=== PATIENT | female | born 1970 | race Two or more races ===

== ENCOUNTER 2020-06-18 08:05 | Inpatient (IN) | payer MEDICAID, OTHER ==
[~2020-06-18] VITALS: Ht 170.2 cm; Wt 86.5 kg
[2020-06-18 08:44] LABS: Hematocrit 22.7 % (36.0-46.0); Mean Corpuscular Hgb Conc. 30.7 g/dL (32.0-36.0); Mean Corpuscular Volume 58.5 fL (80.0-100.0); Platelet Count (auto) 309 10^3/uL (140-450); Red Blood Cells 3.89 10^6/uL (4.0-5.20)
[2020-06-18 08:59] LABS: White Blood Cell 1.6 10^3/uL (4.4-10.8)
[2020-06-18] MEDS ORDERED: SODIUM CHLORIDE 0.9% 1,000 ML IV ONE (09:00)
[2020-06-18] MEDS ORDERED: cefTRIAXone 1GM/50ML D5W 50 ML IV ONE (09:00)
[2020-06-18 09:01] LABS: Alanine Aminotransferase 41 U/L (13-56); Albumin 2.5 g/dL (3.4-5.0); Anion Gap 7 (5-15); Aspartate Aminotransferase 31 U/L (15-37); BUN/Creatinine Ratio 14.3; Basophils % (manual) 0 (0.0-2.0); Blast Cells 0; Blood Urea Nitrogen 8 mg/dL (7-18); Calcium 9.2 mg/dL (8.5-10.1); Carbon Dioxide 27 mmol/L (21-32); Chloride 103 mmol/L (98-107); GFR African American 149 mL/min; GFR Non-African American 123 mL/min; Glucose 110 mg/dL (74-106); Metamyelocytes % 0; Myelocytes % 0; Potassium 3.7 mmol/L (3.5-5.1); Promyelocytes % 0; Reactive Lymphocytes 0; Sodium 137 mmol/L (136-145)
[2020-06-18 09:06] LABS: Alkaline Phosphatase 106 U/L (45-117); Bilirubin, Total 0.2 mg/dL (0.2-1.0); Total Protein 7.8 g/dL (6.4-8.2)
[2020-06-18] MEDS ORDERED: IOHEXOL 300 MG/ML 100ML BOTTLE IJ ONE (10:07)
[2020-06-18 10:49] LABS: INR 1.13 (0.9-1.15); Partial Thromboplastin Time 26.4 sec (23.0-31.2)
[2020-06-18 11:05] LABS: Band Neutrophils % (manual) 6; Lymphocytes % (manual) 46 (10.0-50.0)
[2020-06-18 11:06] LABS: Eosinophils % (manual) 2 (0-7); Monocytes % (manual) 13 (0-12)
[2020-06-18] MEDS ORDERED: NITROGLYCERIN 0.4 MG SL TAB SL PRN (11:30)
[2020-06-18] MEDS ORDERED: traMADol HCL 50 MG TAB PO PRN (11:30)
[2020-06-18] MEDS ORDERED: FILGRASTIM (TBO) 300 MCG/0.5 ML SYRG SC ONE (11:30)
[2020-06-18] MEDS ORDERED: MORPHINE SULF INJ 2 MG/ML SYRINGE 1ML IV PRN (11:30)
[2020-06-18] MEDS ORDERED: PROMETHAZINE HCL 25 MG/ML 1ML IV PRN (11:30)
[2020-06-18] MEDS ORDERED: TEMAZEPAM 15 MG CAP PO PRN (11:30)
[2020-06-18] MEDS ORDERED: AMOX500C2 PO (12:16)
--- NOTE | 2020-06-18 12:35 | NUR ---
PATIENT ARRIVED TO THE FLOOR. PATIENT SHOWS NO SIGNS OF DISTRESS AT THIS TIME. DISCUSSED THE PLAN OF CARE WITH THE PATIENT. BED IN LOWEST POSITION, SIDE RAILS UP X2, AND CALL LIGHT IS WITHIN REACH.
[2020-06-18 14:06] VITALS: BP 120/69
[2020-06-18] MEDS ORDERED: FAMO-12 PO (14:12)
[2020-06-18] MEDS ORDERED: PANT1INJ3 IV (14:12)
[2020-06-18] MEDS ORDERED: ONDA-155 PO (14:12)
[2020-06-18] MEDS ORDERED: DEXA4TAB PO (14:12)
[2020-06-18 14:22] VITALS: BP 117/69
[2020-06-18 14:34] VITALS: BP 114/67
[2020-06-18] MEDS: ACETAMINOPHEN 500 MG TAB PO PRN (16:48)
[2020-06-18 17:00] VITALS: BP 116/74
--- NOTE | 2020-06-18 17:18 | NUR ---
PATIENT COMPLAINING OF A SORE THROAT. CALLED DR GRAVES AND RECEIVED NEW ORDERS.
[2020-06-18] MEDS: THROAT LOZENGES(CEPASTAT) MT PRN (18:19)
--- NOTE | 2020-06-18 19:18 | NUR ---
Opening note Assumed care of patient, patient is alert and orientated x4. Patient is Haitian speaking. POC reviewed. All questions answered at this time. Bed is locked in lowest position, side rails up x2. Patient ambulates Call light within reach, Will continue to monitor q1hr and PRN.
[2020-06-18] MEDS: MORPHINE SULF INJ 2 MG/ML SYRINGE 1ML IV PRN (20:14)
--- NOTE | 2020-06-18 20:15 | NUR ---
Pain Patient is having pain in her lower back 8/. Will reassess pain and continue to monitor.
--- NOTE | 2020-06-18 20:20 | NUR ---
Dr Bello at bedside. Dr Bello at bedside. No new orders received. Will continue to monitor patient.
[2020-06-18 21:05] LABS: Urine Bacteria NONE SEEN /hpf (None Seen); Urine Blood 3+ /uL (Negative); Urine Mucus MODERATE (None Seen); Urine Specific Gravity 1.036 (1.001-1.035); Urine WBC 16 /hpf (0 - 5)
[2020-06-18 21:23] VITALS: BP 123/53
[2020-06-18] MEDS: FAMOTIDINE 20 MG TAB PO SCH (21:54)
[2020-06-19] VITALS (9 sets, daily range): BP systolic 100–128; BP diastolic 59–78
--- NOTE | 2020-06-19 02:05 | NUR ---
Pain Patient is having pain 8/10 on her back, also in her throat. Medicated per md orders. Will reassess and continue to monitor patient.
[2020-06-19] MEDS: MORPHINE SULF INJ 2 MG/ML SYRINGE 1ML IV PRN (02:06)
[2020-06-19 05:42] LABS: Mean Corpuscular Volume 61.4 fL (80.0-100.0)
[2020-06-19 05:44] LABS: Mean Corpuscular Hemoglobin 19.4 pg (28.0-32.0); Mean Corpuscular Hgb Conc. 31.7 g/dL (32.0-36.0); Platelet Count (auto) 299 10^3/uL (140-450); Red Blood Cells 3.58 10^6/uL (4.0-5.20); White Blood Cell 7.7 10^3/uL (4.4-10.8)
[2020-06-19 06:07] LABS: Red Cell Distribution Width 22.5 % (11.8-14.3)
[2020-06-19 06:14] LABS: Basophils % (manual) 0 (0.0-2.0); Blast Cells 0; Eosinophils % (manual) 0 (0-7); Metamyelocytes % 0; Promyelocytes % 0; Reactive Lymphocytes 0
--- NOTE | 2020-06-19 06:20 | NUR ---
Critical lab value Critical lab value hemoglobin 7.0. Will call hospitalist.
--- NOTE | 2020-06-19 06:25 | NUR ---
Paged Hospitalist Paged Hospitalist regarding patients critical hemoglobin. Awaiting call back. Will continue to monitor.
[2020-06-19 06:42] LABS: Band Neutrophils % (manual) 4; Lymphocytes % (manual) 12 (10.0-50.0); Monocytes % (manual) 7 (0-12); Myelocytes % 2
--- NOTE | 2020-06-19 07:00 | NUR ---
OPENING SHIFT NOTE RECEIVED REPORT ON THE PATIENT. AWAKE SITTING UP IN BED HAVING BREAKFAST. PATIENT SHOWS NO SIGNS OF DISTRESS AT THIS TIME. DISCUSSED THE PLAN OF CARE WITH THE PATIENT. BED IN LOWEST POSITION, SIDE RAILS UP X2, AND THE CALL LIGHT IS WITHIN REACH.
--- NOTE | 2020-06-19 07:10 | NUR ---
Critical lab value endorsed to day shift RN. Hospitalist has not paged back.
--- NOTE | 2020-06-19 07:13 | NUR ---
Closing note endorsed care to day shift RN no sob or distress noted.
--- NOTE | 2020-06-19 10:28 | NUR ---
DR WOODS AT BEDSIDE. NEW ORDERS RECEIVED.
[2020-06-19] MEDS: FAMOTIDINE 20 MG TAB PO SCH ×2 (10:45→22:30)
[2020-06-19] MEDS: cefTRIAXone 1GM/50ML D5W 50 ML IV SCH (10:45)
[2020-06-19] MEDS: FILGRASTIM (TBO) 300 MCG/0.5 ML SYRG SC SCH (10:53)
[2020-06-19] MEDS ORDERED: diphenhdrAMINE HCL 25 MG CAP PO PRN (12:00)
[2020-06-19] MEDS: SODIUM CHLORIDE 0.9% 1,000 ML IV SCH (15:32)
[2020-06-19] MEDS: ACETAMINOPHEN 500 MG TAB PO PRN (16:38)
--- NOTE | 2020-06-19 17:27 | NUR ---
IV removal IV DC'd with clean sterile technique, catheter fully intact. Pressure dressing applied to site. Patient tolerated well. NOTE: []
--- NOTE | 2020-06-19 17:28 | NUR ---
IV insertion IV access obtained, via clean sterile technique by inserting 20 gauge catheter at the right forearm after 1 attempt(s). IV secured properly. No trauma to site. Patient tolerated well. NOTE: []
--- NOTE | 2020-06-19 19:18 | NUR ---
Opening note Assumed care of patient, Patient is resting in bed. bed is locked in lowest position, side rails up x2. No sob or distress noted. POC reviewed patient verbalized understanding. Patient is infusing blood products. Blood transfusion is almost done. Will reassess the patient and stop the transfusion when it ends. Call light within reach, Will continue to monitor q1hr and PRN.
--- NOTE | 2020-06-19 19:30 | NUR ---
Blood transfusion ended. Blood transfusion has been complete. Vital signs are temp: 98.7, oxygen saturation 99%, Patient has no pain, HR 88 Blood pressure 113/65. Blood products has been discarded and NS at 50 ml has been resumed. Patient tolerated well. Will continue to monitor q1hr and PRN.
--- NOTE | 2020-06-19 21:30 | NUR ---
H&H ordered Per protocol H&H ordered. Will continue to monitor patient.
[2020-06-19 22:51] LABS: Hematocrit 27.4 % (36.0-46.0); Hemoglobin 8.6 g/dL (12.2-16.2)
[2020-06-20] MEDS: THROAT LOZENGES(CEPASTAT) MT PRN ×3 (03:07→21:07)
[2020-06-20 05:29] VITALS: BP 113/69
[2020-06-20 07:14] LABS: Red Blood Cells 3.94 10^6/uL (4.0-5.20)
[2020-06-20 07:16] LABS: Hematocrit 25.5 % (36.0-46.0); Hemoglobin 7.9 g/dL (12.2-16.2); Mean Corpuscular Hgb Conc. 30.9 g/dL (32.0-36.0); Mean Corpuscular Volume 64.6 fL (80.0-100.0); Platelet Count (auto) 413 10^3/uL (140-450); White Blood Cell 24.9 10^3/uL (4.4-10.8)
[2020-06-20 07:17] LABS: Red Cell Distribution Width 27.5 % (11.8-14.3)
[2020-06-20 07:18] LABS: Basophils % (manual) 0 (0.0-2.0); Blast Cells 0; Eosinophils % (manual) 0 (0-7); Promyelocytes % 0; Reactive Lymphocytes 0
--- NOTE | 2020-06-20 07:33 | NUR ---
Closing note Endorsed care to day shift RN no sob or distress noted.
--- NOTE | 2020-06-20 07:50 | NUR ---
Opening note Assumed care of patient, patient is alert and orientated x4, no sob or distress noted. POC reviewed, all questions answered at this time. Bed is locked in lowest position, side rails up x2. Call light within reach. Will continue to monitor q1hr and PRN.
[2020-06-20 07:55] LABS: Band Neutrophils % (manual) 8; Lymphocytes % (manual) 6 (10.0-50.0); Metamyelocytes % 3; Monocytes % (manual) 4 (0-12); Myelocytes % 1
[2020-06-20 09:00] VITALS: BP 112/66
[2020-06-20] MEDS: cefTRIAXone 1GM/50ML D5W 50 ML IV SCH (09:07)
[2020-06-20] MEDS: SODIUM CHLORIDE 0.9% 1,000 ML IV SCH ×2 (09:08→19:00)
[2020-06-20] MEDS: FAMOTIDINE 20 MG TAB PO SCH ×2 (09:08→21:56)
[2020-06-20] MEDS: FILGRASTIM (TBO) 300 MCG/0.5 ML SYRG SC SCH (09:21)
--- NOTE | 2020-06-20 11:10 | NUR ---
Nutrition Assessment Est energy needs 5499-2866 kcal (18-20 kcal/kg BW 87.3kg) Est protein needs 61-74g (1-1.2g/kg IBW 61kg) Will reassess prn. Addendum: 06/20/20 at [address] Amended: Links added.
[2020-06-20 13:00] VITALS: BP 122/75
[2020-06-20] MEDS: ACETAMINOPHEN 500 MG TAB PO PRN (16:21)
[2020-06-20 17:05] VITALS: BP 114/69
[2020-06-20] MEDS ORDERED: CLINDAMYCIN 300MG IV 50 ML IV ONE (19:00)
[2020-06-20] MEDS ORDERED: SODIUM FERR GLUC 62.5MG/5ML 125 MG in SODIUM CHL 0.9% 100 ML IV ONE (19:15)
--- NOTE | 2020-06-20 19:20 | NUR ---
Opening Shift Note Assumed care of patient, awake and alert x 4. No S/S of distress/SOB or pain. Tele box matches patient all leads in position. Bed lowered and locked call light and bedside table within reach. Instructed on POC and to call for assist PRN, will continue to monitor for changes Q1hr and PRN.
[2020-06-20 21:30] VITALS: BP 122/80
--- NOTE | 2020-06-20 21:30 | NUR ---
RECEIVED REPORT FROM KRYS EVANS. ASSUMING ROLE OF CARE OF PATIENT AT THIS TIME. PATIENT SHOWING NO SIGN OF DISTRESS, SHORTNESS OF BREATH, AND PATIENT DENIES ANY PAIN AT THIS TIME. PATIENT EDUCATED ON PLAN OF CARE FOR THE NIGHT AND PATIENT VERBALIZED UNDERSTANDING. BED LOWERED, CALL LIGHT WITHIN REACH, AND PATIENT WILL BE ROUNDED ON EVERY HOUR AND NEEDED.
--- NOTE | 2020-06-20 21:30 | NUR ---
Transfer Pt transferred to [facility] room 235 gave report to Albin. No S/Sx of distress/SOB/pain. New tele box placed on pt all leads in position.
[2020-06-20] MEDS: CLINDAMYCIN 300MG IV 50 ML IV SCH (21:56)
--- NOTE | 2020-06-20 22:25 | NUR ---
PATIENT TEMP RECHECKED PATIENT'S TEMP AT THIS TIME. TEMP AT THIS TIME 98.9. WILL CONTINUE TO MONITOR.
[2020-06-20 23:47] LABS: % Iron Saturation 36.9 % (15-50)
[2020-06-21] VITALS (7 sets, daily range): BP systolic 116–136; BP diastolic 72–86
[2020-06-21] MEDS: CLINDAMYCIN 300MG IV 50 ML IV SCH ×3 (05:21→21:24)
[2020-06-21 06:02] LABS: Hematocrit 25.7 % (36.0-46.0); Mean Corpuscular Hemoglobin 20.4 pg (28.0-32.0)
[2020-06-21 06:05] LABS: Hemoglobin 8.1 g/dL (12.2-16.2); Mean Corpuscular Hgb Conc. 31.4 g/dL (32.0-36.0); Platelet Count (auto) 535 10^3/uL (140-450); Red Blood Cells 3.96 10^6/uL (4.0-5.20)
[2020-06-21 06:08] LABS: Red Cell Distribution Width 28.3 % (11.8-14.3); White Blood Cell 38.5 10^3/uL (4.4-10.8)
[2020-06-21 06:10] LABS: Basophils % (manual) 0 (0.0-2.0); Blast Cells 0; Eosinophils % (manual) 0 (0-7); Metamyelocytes % 0; Promyelocytes % 0; Reactive Lymphocytes 0
[2020-06-21 06:14] LABS: INR 1.18 (0.9-1.15); Partial Thromboplastin Time 29.4 sec (23.0-31.2)
[2020-06-21 06:15] LABS: Albumin 2.2 g/dL (3.4-5.0); Calcium 8.4 mg/dL (8.5-10.1); Magnesium 2.5 mg/dL (1.6-2.6); Potassium 3.5 mmol/L (3.5-5.1)
[2020-06-21 06:19] LABS: BUN/Creatinine Ratio 4.9; Bilirubin, Total 0.2 mg/dL (0.2-1.0); Phosphorus 4.2 mg/dL (2.5-4.90); Total Protein 6.6 g/dL (6.4-8.2)
[2020-06-21 06:21] LABS: Cholesterol 90 mg/dL (< 200); HDL Cholesterol 31 mg/dL (40-59); LDL Cholesterol 49 mg/dL (< 100); Triglycerides 81 mg/dL (< 150)
[2020-06-21 06:38] LABS: Band Neutrophils % (manual) 16; Lymphocytes % (manual) 2 (10.0-50.0); Monocytes % (manual) 7 (0-12); Myelocytes % 2
[2020-06-21] MEDS ORDERED: VANCOMYCIN PER PHARMACY 0 MG IV SCH (07:30)
[2020-06-21] MEDS: SODIUM CHLORIDE 0.9% 1,000 ML IV SCH ×2 (08:20→21:25)
[2020-06-21] MEDS: cefTRIAXone 1GM/50ML D5W 50 ML IV SCH (08:42)
[2020-06-21] MEDS: VANCOMYCIN 1GM/250ML 250 ML IV SCH ×2 (09:52→20:14)
[2020-06-21] MEDS: FAMOTIDINE 20 MG TAB PO SCH ×2 (09:52→21:24)
--- NOTE | 2020-06-21 13:30 | NUR ---
Report given to RNKirti. Patient will be moved to room 208.
--- NOTE | 2020-06-21 13:50 | NUR ---
PATIENT ARRIVED TO [facility] PATIENT ALERT AND ORIENTED X4 PATIENT ORIENTED TO UNIT STAFF AND POC PATIENT VERBALIZED UNDERSTANDING . EDUCATED ON USE OF CALL LIGHT. PATIENT DENIES ALL PAIN AND SOB. CALL LIGHT WITHIN REACH BED IN LOWEST LOCKED POSITION WILL CONTINUE TO MONITOR
--- NOTE | 2020-06-21 13:50 | NUR ---
Patient and belongings moved via wheelchair to room 208.
--- NOTE | 2020-06-21 19:35 | NUR ---
Opening Shift Note Assumed care of patient, awake and alert. No S/S of distress/SOB or pain. Instructed on POC and to call for assist PRN, will continue to monitor for changes Q1hr and PRN.
--- NOTE | 2020-06-21 20:00 | NUR ---
IV removal IV DC'd with clean sterile technique, catheter fully intact. Pressure dressing applied to site. Patient tolerated well.
--- NOTE | 2020-06-21 20:05 | NUR ---
IV insertion IV access obtained, via clean sterile technique by inserting 22 gauge catheter at RAC & LFA after 1 attempts. IV secured properly. No trauma to site. Patient tolerated well.
[2020-06-22] MEDS: CLINDAMYCIN 300MG IV 50 ML IV SCH ×2 (04:33→13:00)
[2020-06-22 05:05] VITALS: BP 117/74
[2020-06-22] MEDS: VANCOMYCIN 1GM/250ML 250 ML IV SCH (05:50)
--- NOTE | 2020-06-22 06:58 | NUR ---
Diet Patient is asking for a soft diet due to irritated throat. Patient said "it hurts when I swallowed hard food"
[2020-06-22 07:37] LABS: Hematocrit 26.4 % (36.0-46.0)
[2020-06-22 07:39] LABS: Hemoglobin 8.2 g/dL (12.2-16.2); Mean Corpuscular Hemoglobin 20.5 pg (28.0-32.0); Mean Corpuscular Hgb Conc. 30.8 g/dL (32.0-36.0); Mean Corpuscular Volume 66.4 fL (80.0-100.0); Platelet Count (auto) 556 10^3/uL (140-450); Red Blood Cells 3.98 10^6/uL (4.0-5.20); White Blood Cell 18.4 10^3/uL (4.4-10.8)
[2020-06-22 07:46] LABS: INR 1.17 (0.9-1.15); Partial Thromboplastin Time 32.9 sec (23.0-31.2)
[2020-06-22 07:47] LABS: Albumin 2.1 g/dL (3.4-5.0); Calcium 8.3 mg/dL (8.5-10.1); Magnesium 2.7 mg/dL (1.6-2.6); Potassium 3.4 mmol/L (3.5-5.1)
[2020-06-22 07:51] LABS: BUN/Creatinine Ratio 5.8; Bilirubin, Total 0.2 mg/dL (0.2-1.0); Phosphorus 3.9 mg/dL (2.5-4.90); Red Cell Distribution Width 28.8 % (11.8-14.3); Total Protein 6.4 g/dL (6.4-8.2)
[2020-06-22 07:52] LABS: Basophils % (manual) 0 (0.0-2.0); Blast Cells 0; Eosinophils % (manual) 0 (0-7); Promyelocytes % 0; Reactive Lymphocytes 0
[2020-06-22] MEDS: FAMOTIDINE 20 MG TAB PO SCH (08:24)
[2020-06-22] MEDS: cefTRIAXone 1GM/50ML D5W 50 ML IV SCH (08:24)
[2020-06-22 08:59] LABS: Band Neutrophils % (manual) 8; Lymphocytes % (manual) 7 (10.0-50.0); Metamyelocytes % 3; Monocytes % (manual) 4 (0-12); Myelocytes % 2
[2020-06-22 09:00] VITALS: BP_SYST 131; BP_SYST 135; BP_DIAS 78; BP_DIAS 82
[2020-06-22] MEDS ORDERED: AMOX500T86 PO (11:25)
[2020-06-22] MEDS ORDERED: IRON SUCROSE COMPLEX 200 MG in SODIUM CHL 0.9% 100 ML IV SCH (12:00)
[2020-06-22 12:04] VITALS: BP 135/82
[2020-06-22 13:00] VITALS: BP 126/82
--- NOTE | 2020-06-22 13:34 | NUR ---
DISCHARGE NOTE PATIENT ALERT AND ORIENTED X4 ALL DISCHARGE INSTRUCTIONS GIVEN ALL QUESTIONS ADDRESSED/ANSWERED PATIENT VERBALIZED UNDERSTANDING. IVS REMOVED CATHETERS INTACT PRESSURE DRESSINGS APPLIED PATIENT TOLERATED WELL. TELEBOX REMOVED CLEANED AND BROUGHT TO ICU. PATIENT ASSISTED TO PERSONAL VEHICLE USING WHEELCHAIR PATIENT DENIES ALL PAIN SOB AND DISTRESS
== END 2020-06-22 13:34 | disposition home or self-care (01) | DRG 145 ==
LOC: EDBD 08:05 → ER 08:05 → TELE 08:06 → TELE-CENTR 12:40 → TELE-EAST 06-20 19:30 → TELE-CENTR 06-21 14:57
PROVIDERS: ADMIT Internal Medicine; ATTEND Internal Medicine
PROC: 30233N1 Transfusion of Nonautologous Red Blood Cells into Peripheral Vein, Percutaneous Approach (ICD-10-PCS; principal; 2020-06-18)
DX: J20.9 Acute bronchitis, unspecified (principal); D61.810 Antineoplastic chemotherapy induced pancytopenia; D70.9 Neutropenia, unspecified; E88.09 Other disorders of plasma-protein metabolism, not elsewhere classified; C50.919 Malignant neoplasm of unspecified site of unspecified female breast; T45.8X5A Adverse effect of other primarily systemic and hematological agents, initial encounter; Z20.828 Contact with and (suspected) exposure to other viral communicable diseases; E87.6 Hypokalemia; F41.9 Anxiety disorder, unspecified; R50.81 Fever presenting with conditions classified elsewhere; T45.1X5A Adverse effect of antineoplastic and immunosuppressive drugs, initial encounter; Z80.3 Family history of malignant neoplasm of breast; Y92.89 Other specified places as the place of occurrence of the external cause
CPT/HCPCS: 36415; 36430; 70360; 70491; 71045; 76830; 76856; 80053; 80061; 81001; 83036; 83540; 83550; 83605; 83735; 84100; 84443; 84484; 85007; 85014; 85018; 85027; 85045; 85610; 85730; 86850; 86900; 86901; 86920; 87040; 87070; 87086; 87205; 87804; 87880; 93005; 96365; 96366; 96375; G0378; J0696; J1447; J1756; J3490

== ENCOUNTER 2023-06-30 11:37 | Emergency (ER) | payer MEDICAID ==
[~2023-06-30] VITALS: Ht 170.2 cm; Wt 99.0 kg
[~2023-06-30 11:37] MED LIST: AMOX500C2 PO; AMOX500T86 PO; DEXA4TAB PO; FAMO-12 PO; ONDA-155 PO; PANT1INJ3 IV
[2023-06-30 12:29] VITALS: BP 146/96; PULSE 80; RESP 18; TEMP 98.4; O2SAT 95
[2023-06-30] MEDS ORDERED: IBUP-1456 PO (13:30)
== END 2023-06-30 13:36 | disposition home or self-care (01) ==
LOC: ER 11:37
DX: S00.33XA Contusion of nose, initial encounter (principal); W22.8XXA Striking against or struck by other objects, initial encounter; Y93.89 Activity, other specified; Y92.89 Other specified places as the place of occurrence of the external cause; Y99.8 Other external cause status
CPT/HCPCS: 70160